=== PATIENT | male | born 1960 | race Caucasian/White ===

== ENCOUNTER 2020-06-27 12:06 | Outpatient (REF) | payer OTHER, SELFPAY | END 2020-06-27 12:07 | disposition home or self-care (01) | LOC: HO.SCI 12:06 | DX: Z13.89 Encounter for screening for other disorder (principal) ==

== ENCOUNTER → 2020-07-06 07:27 | Outpatient (REF) | payer OTHER, SELFPAY ==
--- NOTE | 2020-07-06 07:30 | CA_ITS ---
Transthoracic Echocardiogram Patient (Last, First, Middle): Rik Beebe, Gender: Male Date of : 1960 Age: 59 Procedure Date: 07/06/2020 Procedure Type: Transthoracic Echocardiogram Location: OP Height: 177.8 cm Weight: 82.56 kg BSA: 2.01 m2 Heart Rate: bpm BP: 135 / 85 mmHg Manager Voice: MICHELLE Lin MD: Rafita Evangelista MD Home Health Care Coordinator: Iglesia Carreno MD Symptoms: I44.2 ATRIOVENTRICULAR BLOCK Study Quality: Fair ECG Rhythm: Sinus Conclusions: - Essentially normal study Findings Left Ventricle Normal left ventricular size, thickness, and systolic function. The visually estimated ejection fraction is between 65-70%. Diastolic function is normal for age. Right Ventricle Normal right ventricular cavity size and systolic function. Atria Both atria are normal in size. There is no evidence of interatrial shunt. Aortic Valve Normal aortic valve structure and function. There is no aortic valve stenosis. There is no aortic valve regurgitation. Mitral Valve Likely normal mitral valve structure and function. There is trace mitral valve regurgitation. There is no mitral valve stenosis. Pulmonic Valve The pulmonic valve was not well visualized. Tricuspid Valve Likely normal tricuspid valve structure and function. There is trace tricuspid valve regurgitation. The right ventricular systolic pressure is normal. The right ventricular systolic pressure is 13 mmHg. Normal right atrial pressure. There is no evidence of pulmonary hypertension. Great Vessels All visible segments of the aorta are normal in size. The pulmonary artery was not well visualized. Venous The inferior vena cava is normal in size and collapses greater than 50% with inspiration. Pericardium/Pleural There is no evidence of pericardial effusion. Prior Study Comparison No prior study available for comparison. Measurements M-Mode Liner Measurements Normals - Women/Men AOV Cusps: 2.40 1.5-2.6 cm/m2 2D Linear Measurements IVSd: 1.10 0.6-0.9/0.6-1.0 cm LVIDd: 4.44 3.9-5.3/4.2-5.9 cm LVIDd Index: 2.21 2.4-3.2/2.2-3.1 cm/m2 LVIDs: 2.57 2.0-3.6 cm LVPWd: 1.01 0.7-1.1 cm Ao Root: 3.00 2.1-3.5 cm LA Diam: 3.10 2.7-3.8/3.0-4.0 cm LAIDs Index: 1.54 1.5-2.3 cm/m2 LV Mass: 201.22 67-162/88-224 g LV Mass Index: 100.11 43-95/49-115 g/m2 LVOT Diam: 1.90 3.0+(-)1.3 cm 2D Systolic Function EF 4C: 70.80 >55% EF 2C: 69.60 >55% EF BiP: 70.80 >55% Mitral Valve MV Pk E: 0.68 MV PK A: 0.51 MV Decel Time: 306.00 E/A: 1.30 E'Lateral: 11.50 E'Medial: 9.14 E/E' Med: 7.50 E/E' Lat: 5.90 PHT: 90.00 MVA PHT: 2.44 Decel Elliott: 2.23 Aortic Valve AoV Pk Abe: 1.32 AoV Pk Grad: 7.00 LVOT LVOT Pk Abe: 0.83 LVOT Mn Abe: 0.58 LVOT VTI: 0.18 LVOT Pk Grad: 3.00 LVOT Mn Grad: 2.00 LVOT Diam: 1.90 LVOT Area: 2.84 Diastolic Function MV Pk E: 0.68 MV Pk A: 0.51 E/A: 1.30 E'Medial: 9.14 E/E' Med: 7.50 E' Laterial: 11.50 E/E' Lat: 5.90 Tricuspid Valve TR Pk Abe: 1.55 TR Pk Grad: 10.00 RA Press: 3.00 RVSP: 13.00 Great Vessels Aorta Ao Root-2D: 3.00 2.0-3.7 cm Ao Asc: 3.10 2.1-3.4 cm Ao Arch: 3.60 Pulmonary Valve PV Pk Abe: 0.91 Peak PV Grad: 3.00 Updated in Other Vendor System with Status of Final Iglesia Carreno MD electronically signed on 07/07/2020 5:13:38 PM with status of Final
== END ==
LOC: HO.CARD 07:27
PROVIDERS: PCP Internal Medicine; Visit Provider Internal Medicine
DX: I44.2 Atrioventricular block, complete (principal)
CPT/HCPCS: 93306